=== PATIENT | female | born 2000 | race Caucasian/White ===

== ENCOUNTER 2023-02-22 07:18 | Emergency (ER) | payer MEDICAID ==
[~2023-02-22] VITALS: Ht 160 cm; Wt 61.2 kg
[2023-02-22 07:34] VITALS: BP 127/71
[2023-02-22] MEDS ORDERED: ONDANSETRON 4 MG/2 ML VIAL IVP ONE (08:00)
[2023-02-22] MEDS ORDERED: MORPHINE SULFATE 4 MG/ML SYR IVP ONE (08:00)
[2023-02-22] MEDS ORDERED: NACL 0.9% 1,000 ML IV ONE (08:00)
[2023-02-22 08:19] LABS: BASOPHILS # (AUTO) 0.1 K/uL (0.00-0.22); BASOPHILS % (AUTO) 0.4 % (0.0-2.0); EOSINOPHILS # (AUTO) 0.1 K/uL (0-0.4); EOSINOPHILS % (AUTO) 0.6 % (0.0-4.0); HEMATOCRIT 41.4 % (36-48); HEMOGLOBIN 13.8 g/dL (12.0-16.0); LYMPHOCYTES # (AUTO) 2.1 K/uL (2.5-16.5); LYMPHOCYTES % (AUTO) 15.6 % (20.5-51.1); MEAN CORPUSCULAR HEMOGLOBIN 30 pg (27-31); MEAN CORPUSCULAR HGB CONC 33 g/dL (33-37); MEAN CORPUSCULAR VOLUME 89.5 fL (80-94); MONOCYTES % (AUTO) 7.5 % (1.7-9.3); NEUTROPHILS # (AUTO) 10.3 K/uL (1.8-7.7); NEUTROPHILS % (AUTO) 75.9 % (42.2-75.2); PLATELET COUNT (AUTO) 300 K/uL (140-450); RED BLOOD CELL COUNT(AUTO) 4.62 MIL/uL (4.20-5.40); RED CELL DISTRIBUTION WIDTH 12.8 % (11.6-13.7); WHITE BLOOD COUNT (AUTO) 13.6 K/uL (4.8-10.8)
[2023-02-22 08:41] LABS: APPEARANCE,URINE CLEAR (CLEAR); BILIRUBIN,URINE NEGATIVE (NEGATIVE); BLOOD, URINE NEGATIVE (NEGATIVE); COLOR,URINE YELLOW (YELLOW); LEUKOCYTE ESTERASE ,URINE NEGATIVE (NEGATIVE); NITRITE, URINE NEGATIVE (NEGATIVE); UGLUCOSE NEGATIVE (NEGATIVE)
[2023-02-22 08:44] LABS: ALBUMIN 3.6 g/dL (3.4-5.0); ANION GAP 9.5 (8-16); CREATININE 0.7 mg/dL (0.6-1.3); POTASSIUM 4.5 mmol/L (3.5-5.1); TOTAL BILIRUBIN 0.2 mg/dL (0.0-1.0)
[2023-02-22] MEDS ORDERED: ONDA-188 PO (09:45)
[2023-02-22] MEDS ORDERED: SUCR1TAB35 PO (09:45)
[2023-02-22] MEDS ORDERED: IBUP-2213 PO (09:45)
[2023-02-22] MEDS ORDERED: SIME125T38 PO (09:45)
[2023-02-22 10:36] VITALS: BP 127/71
== END 2023-02-22 10:36 | disposition home or self-care (01) ==
LOC: MED 07:18
DX: A08.4 Viral intestinal infection, unspecified (principal); Z79.899 Other long term (current) drug therapy; Z79.1 Long term (current) use of non-steroidal anti-inflammatories (NSAID)
CPT/HCPCS: 36415; 74176; 76856; 80053; 81003; 81025; 83690; 85025; 93976; 96361; 96374; 96375; 99285; J2270; J2405; J7030; Q0092

== ENCOUNTER 2023-04-11 10:47 | Emergency (ER) | payer MEDICAID ==
[~2023-04-11] VITALS: Ht 162.6 cm; Wt 72.6 kg
[~2023-04-11 10:47] MED LIST: IBUP-2213 PO; ONDA-188 PO; SIME125T38 PO; SUCR1TAB35 PO
[2023-04-11 10:52] VITALS: BP 117/64
--- NOTE | 2023-04-11 12:40 | NUR ---
MD CARRASQUILLO AT BEDSIDE FOR MSE.
[2023-04-11] MEDS ORDERED: NACL 0.9% 1,000 ML IV ONE (12:45)
[2023-04-11] MEDS ORDERED: ACETAMINOPHEN EXTRA STRENGTH 500 MG TAB PO ONE (12:45)
[2023-04-11 13:47] LABS: BASOPHILS % (AUTO) 0.4 % (0.0-2.0); EOSINOPHILS % (AUTO) 0.1 % (0.0-4.0); HEMATOCRIT 39.4 % (36-48); HEMOGLOBIN 13.4 g/dL (12.0-16.0); LYMPHOCYTES # (AUTO) 1.3 K/uL (2.5-16.5); LYMPHOCYTES % (AUTO) 13.1 % (20.5-51.1); MEAN CORPUSCULAR HEMOGLOBIN 30 pg (27-31); MEAN CORPUSCULAR HGB CONC 34 g/dL (33-37); MEAN CORPUSCULAR VOLUME 87.6 fL (80-94); MONOCYTES # (AUTO) 0.9 K/uL (0.8-1.0); MONOCYTES % (AUTO) 9.3 % (1.7-9.3); NEUTROPHILS # (AUTO) 7.6 K/uL (1.8-7.7); NEUTROPHILS % (AUTO) 77.1 % (42.2-75.2); PLATELET COUNT (AUTO) 254 K/uL (140-450); RED CELL DISTRIBUTION WIDTH 12.5 % (11.6-13.7); WHITE BLOOD COUNT (AUTO) 9.9 K/uL (4.8-10.8)
[2023-04-11 14:26] LABS: ALBUMIN 3.9 g/dL (3.4-5.0); ANION GAP 13.6 (8-16); ASPARTATE AMINOTRANSFERASE 16 U/L (15-37); CARBON DIOXIDE 25.2 mmol/L (21-32); CHLORIDE 100 mmol/L (98-107); CREATININE 0.6 mg/dL (0.6-1.3); GFR ARICAN-AMERICAN 159 mL/min (>90); GLUCOSE 63 mg/dL (74-106); POTASSIUM 3.8 mmol/L (3.5-5.1); SODIUM SERUM 135 mmol/L (136-145); TOTAL BILIRUBIN 0.5 mg/dL (0.0-1.0); UREA NITROGEN, BLOOD 10 mg/dL (7-18)
[2023-04-11 15:16] LABS: APPEARANCE,URINE CLEAR (CLEAR); BILIRUBIN,URINE NEGATIVE (NEGATIVE); BLOOD, URINE NEGATIVE (NEGATIVE); COLOR,URINE YELLOW (YELLOW); LEUKOCYTE ESTERASE ,URINE NEGATIVE (NEGATIVE); NITRITE, URINE NEGATIVE (NEGATIVE); PH,URINE 6.5 (5.0-9.0); UGLUCOSE NEGATIVE (NEGATIVE)
[2023-04-11 16:20] VITALS: BP 118/59
--- NOTE | 2023-04-11 16:20 | NUR ---
Patient discharged with v/s stable. Written and verbal after care instructions given and explained. Patient verbalized understanding. Ambulatory with steady gait. All questions addressed prior to discharge. Advised to follow up with PMD. IV D/C'D.
== END 2023-04-11 16:20 | disposition home or self-care (01) ==
LOC: EDBD 10:47 → MED 10:47
DX: R53.1 Weakness (principal); R06.02 Shortness of breath; R42 Dizziness and giddiness; Z79.899 Other long term (current) drug therapy
CPT/HCPCS: 36415; 71045; 80053; 81003; 84443; 84484; 85025; 85379; 86886; 86900; 86901; 93005; 96360; 99285; J7030; Q0092

== ENCOUNTER 2023-04-13 09:15 | Emergency (ER) | payer MEDICAID ==
[~2023-04-13] VITALS: Ht 152.4 cm; Wt 56.7 kg
[2023-04-13 09:20] VITALS: BP 115/56
[2023-04-13] MEDS ORDERED: NACL 0.9% 1,000 ML IV SCH (09:40)
[2023-04-13] MEDS ORDERED: diphenhydrAMINE 50 MG/ML VIAL IVP ONE (09:40)
[2023-04-13] MEDS ORDERED: METOCLOPRAMIDE 10 MG/2 ML INJ VIAL IVP ONE (09:40)
[2023-04-13 10:05] LABS: BASOPHILS % (AUTO) 0.2 % (0.0-2.0); HEMATOCRIT 35.9 % (36-48); HEMOGLOBIN 12.1 g/dL (12.0-16.0); LYMPHOCYTES # (AUTO) 0.8 K/uL (2.5-16.5); LYMPHOCYTES % (AUTO) 4.8 % (20.5-51.1); MEAN CORPUSCULAR HEMOGLOBIN 29 pg (27-31); MEAN CORPUSCULAR HGB CONC 34 g/dL (33-37); MEAN CORPUSCULAR VOLUME 86.4 fL (80-94); MONOCYTES # (AUTO) 0.9 K/uL (0.8-1.0); MONOCYTES % (AUTO) 5.3 % (1.7-9.3); NEUTROPHILS # (AUTO) 14.7 K/uL (1.8-7.7); NEUTROPHILS % (AUTO) 89.7 % (42.2-75.2); PLATELET COUNT (AUTO) 225 K/uL (140-450); RED BLOOD CELL COUNT(AUTO) 4.16 MIL/uL (4.20-5.40); RED CELL DISTRIBUTION WIDTH 12.8 % (11.6-13.7); WHITE BLOOD COUNT (AUTO) 16.3 K/uL (4.8-10.8)
[2023-04-13 10:26] LABS: ALBUMIN 3.5 g/dL (3.4-5.0); ANION GAP 16.6 (8-16); CARBON DIOXIDE 21.7 mmol/L (21-32); CREATININE 0.6 mg/dL (0.6-1.3); POTASSIUM 3.3 mmol/L (3.5-5.1); TOTAL BILIRUBIN 0.2 mg/dL (0.0-1.0)
[2023-04-13] MEDS ORDERED: POTASSIUM CHLORIDE 10 MEQ TABER PO ONE ×2 (10:35→11:37)
[2023-04-13 11:02] LABS: APPEARANCE,URINE CLEAR (CLEAR); BILIRUBIN,URINE NEGATIVE (NEGATIVE); BLOOD, URINE TRACE-I (NEGATIVE); COLOR,URINE YELLOW (YELLOW); LEUKOCYTE ESTERASE ,URINE NEGATIVE (NEGATIVE); NITRITE, URINE NEGATIVE (NEGATIVE); UGLUCOSE NEGATIVE (NEGATIVE)
[2023-04-13 11:16] LABS: RBC,URINE 0-5 /HPF (0-5)
--- NOTE | 2023-04-13 11:25 | NUR ---
AWAKE ALERT AMBULATORY "I FEEL ACHY ALL OVER"
[2023-04-13] MEDS ORDERED: KETOROLAC 30 MG/ML VIAL IVP ONE (11:30)
[2023-04-13] MEDS ORDERED: NACL 0.9% 1,000 ML IV ONE (11:30)
[2023-04-13] MEDS ORDERED: ONDA-188 PO (13:09)
[2023-04-13] MEDS ORDERED: [UNRECOGNIZED DRUG - CODE] PO (13:09)
[2023-04-13 14:14] VITALS: BP 102/58
--- NOTE | 2023-04-13 14:16 | NUR ---
Patient discharged with v/s stable. Written and verbal after care instructions given and explained. Patient alert, oriented and verbalized understanding of instructions. Ambulatory with steady gait. All questions addressed prior to discharge. ID band removed. Patient advised to follow up with PMD. Rx of MYLANTA given. Patient educated on indication of medication including possible reaction and side effects. Opportunity to ask questions provided and answered.
== END 2023-04-13 14:14 | disposition home or self-care (01) ==
LOC: MED 09:15
DX: B34.9 Viral infection, unspecified (principal); Z20.822 Contact with and (suspected) exposure to COVID-19; E87.6 Hypokalemia; Z79.899 Other long term (current) drug therapy
CPT/HCPCS: 36415; 71045; 80053; 81001; 81025; 82550; 83605; 85025; 87040; 87086; 87426; 87804; 96361; 96374; 96375; 99284; J1200; J1885; J2765; J7030; Q0092

== ENCOUNTER 2023-06-18 19:10 | Emergency (ER) | payer MEDICAID ==
[~2023-06-18] VITALS: Ht 154.9 cm; Wt 59.9 kg
[~2023-06-18 19:10] MED LIST changes: +[UNRECOGNIZED DRUG - CODE] PO
[2023-06-18 19:47] VITALS: BP 110/68; PULSE 118; RESP 21; TEMP 100.1; O2SAT 98
[2023-06-18 20:30] LABS: APPEARANCE,URINE CLEAR (CLEAR); BILIRUBIN,URINE NEGATIVE (NEGATIVE); BLOOD, URINE 1+ (NEGATIVE); COLOR,URINE YELLOW (YELLOW); LEUKOCYTE ESTERASE ,URINE NEGATIVE (NEGATIVE); NITRITE, URINE NEGATIVE (NEGATIVE); PROTEIN,URINE NEGATIVE (NEGATIVE); UGLUCOSE NEGATIVE (NEGATIVE); UROBILINOGEN,URINE 0.2 EU/dL (0.2 - 1)
[2023-06-18 20:38] LABS: BASOPHILS % (AUTO) 0.3 % (0.0-2.0); HEMOGLOBIN 12.5 g/dL (12.0-16.0); LYMPHOCYTES # (AUTO) 0.7 K/uL (2.5-16.5); LYMPHOCYTES % (AUTO) 6.3 % (20.5-51.1); MEAN CORPUSCULAR HEMOGLOBIN 29 pg (27-31); MEAN CORPUSCULAR HGB CONC 33 g/dL (33-37); MEAN CORPUSCULAR VOLUME 88.5 fL (80-94); MONOCYTES # (AUTO) 0.9 K/uL (0.8-1.0); MONOCYTES % (AUTO) 8.4 % (1.7-9.3); NEUTROPHILS # (AUTO) 8.9 K/uL (1.8-7.7); PLATELET COUNT (AUTO) 292 K/uL (140-450); RED CELL DISTRIBUTION WIDTH 13.6 % (11.6-13.7); WHITE BLOOD COUNT (AUTO) 10.4 K/uL (4.8-10.8)
[2023-06-18] MEDS ORDERED: ONDANSETRON 4 MG ODT PO ONE (20:40)
[2023-06-18] MEDS ORDERED: ACETAMINOPHEN 325 MG TAB PO ONE (20:40)
[2023-06-18 20:47] LABS: BACTERIA,URINE FEW /HPF (None Seen); SQUAMOUS EPITHELIAL CELL,UR 0-3 (FEW) /LPF (0-3 (FEW)); WBC,URINE 0-5 /HPF (0-5)
[2023-06-18 20:57] LABS: ALBUMIN 3.6 g/dL (3.4-5.0); ANION GAP 14.9 (8-16); CALCIUM 8.2 mg/dL (8.5-10.1); CREATININE 0.7 mg/dL (0.6-1.3); POTASSIUM 3.9 mmol/L (3.5-5.1); TOTAL BILIRUBIN 0.2 mg/dL (0.0-1.0)
[2023-06-18 21:37] LABS: FLU A ANTIGEN negative (NEGATIVE); FLU B ANTIGEN NEGATIVE (NEGATIVE)
[2023-06-18 21:50] VITALS: O2SAT 98
[2023-06-18] MEDS ORDERED: ONDA-188 PO (22:30)
[2023-06-18] MEDS ORDERED: ACET-2619 PO (22:30)
== END 2023-06-18 22:38 | disposition home or self-care (01) ==
LOC: MED 19:10
DX: O98.511 Other viral diseases complicating pregnancy, first trimester (principal); Z20.822 Contact with and (suspected) exposure to COVID-19; U07.1 COVID-19; Z3A.01 Less than 8 weeks gestation of pregnancy
CPT/HCPCS: 36415; 76815; 80053; 81001; 81025; 83690; 84702; 85025; 87426; 87804; 99284; Q0092; Q0162